=== PATIENT | female | born 1950 | race Caucasian/White ===

== ENCOUNTER 2023-10-05 10:47 | Emergency (ER) | payer MEDICARE, BC ==
[~2023-10-05] VITALS: Ht 157.5 cm; Wt 72.0 kg
[2023-10-05 11:03] LABS: Basophils # (auto) 0.1 10 ^3/uL (0-0.2); Basophils % (auto) 0.8 % (0.0-2.0); Eosinophils # (auto) 0.1 10 ^3/uL (0-0.8); Eosinophils % (auto) 1.4 % (0.0-7.0); Hematocrit 43.8 % (36.0-46.0); Hemoglobin 14.5 g/dL (12.2-16.2); Lymphocytes # (auto) 1.6 10 ^3/uL (0.4-5.4); Lymphocytes % (auto) 24.6 % (10.0-50.0); Mean Corpuscular Hgb Conc. 33.1 g/dL (32.0-36.0); Mean Corpuscular Volume 93.4 fL (80.0-100.0); Monocytes # (auto) 0.5 10 ^3/uL (0-1.3); Monocytes % (auto) 7.5 % (0.0-12.0); Neutrophils # (auto) 4.2 10 ^3/uL (1.6-8.6); Neutrophils % (auto) 65.7 % (37.0-80.0); Nucleated Red Blood Cells % 0.1 %; Red Blood Cells 4.69 10^6/uL (4.0-5.20); Red Cell Distribution Width 13.4 % (11.8-14.3); White Blood Cell 6.4 10^3/uL (4.4-10.8)
[2023-10-05 11:19] LABS: INR 1.04 (0.9-1.15); Partial Thromboplastin Time 26.7 SEC (24.5-34.5); Prothrombin Time 10.9 sec (9.3-11.8)
[2023-10-05 11:24] LABS: Alanine Aminotransferase 39 U/L (7-40); Albumin 4.4 g/dL (3.2-4.8); Alkaline Phosphatase 115 U/L (46-116); Anion Gap 6 (5-15); Aspartate Aminotransferase 26 U/L (13-40); BUN/Creatinine Ratio 12.6 (10.0-20.0); Bilirubin, Total 0.9 mg/dL (0.2-1.0); Blood Urea Nitrogen 11 mg/dL (9-23); Calcium 9.3 mg/dL (8.7-10.4); Carbon Dioxide 26 mmol/L (20-30); Chloride 110 mmol/L (98-107); Glucose 90 mg/dL (74-106); Sodium 142 mmol/L (136-145); Total Protein 6.6 g/dL (5.7-8.2)
[2023-10-05] MEDS: PANTOPRAZOLE 40 MG TAB PO ONE (11:30)
[2023-10-05 11:35] VITALS: BP 137/96; RESP 16; TEMP 97.9; O2SAT 95
[2023-10-05 12:04] VITALS: PULSE 67
[2023-10-05 12:05] LABS: Urine Bacteria NONE SEEN /hpf (None Seen); Urine Blood Negative /uL (Negative); Urine Clarity Clear (Clear); Urine Protein, UAD Negative (Negative); Urine Specific Gravity 1.004 (1.001-1.035); Urine Urobilinogen Normal (Negative); Urine WBC <1 /hpf (0 - 5)
[2023-10-05 12:06] LABS: Urine Color Straw (Yellow)
[2023-10-05] MEDS ORDERED: PANT40TA2 PO (13:56)
== END 2023-10-05 14:40 | disposition home or self-care (01) ==
LOC: ER 10:47
DX: K21.9 Gastro-esophageal reflux disease without esophagitis (principal); R07.89 Other chest pain; R42 Dizziness and giddiness; I10 Essential (primary) hypertension; E78.5 Hyperlipidemia, unspecified; Z90.49 Acquired absence of other specified parts of digestive tract; Z90.710 Acquired absence of both cervix and uterus
CPT/HCPCS: 36415; 71045; 80053; 81001; 83735; 83880; 84484; 85025; 85379; 85610; 85730; 93005